=== PATIENT | female | born 1965 ===

== ENCOUNTER → 2020-12-22 | Outpatient (CLI) | payer OTHER ==
--- NOTE | 2020-12-23 13:13 | Diagnostic Imaging Report ---
Indication: 2-D and 3-D digital screening with CAD. Compared 01/29/2019 Findings: There is a heterogeneously dense parenchymal pattern which can limit mammographic sensitivity. No mass, architectural distortion, suspicious calcifications, spiculated lesions or interval changes are found. IMPRESSION: Stable negative mammograms. BI-RADS Category 1 ACR BI-RADS Category 1: Negative. Result letter will be mailed to the patient. Note: At least 10% of breast cancer is not imaged by mammography. Dictated by: Dictated on workstation # [id number]
== END ==
LOC: RAD 10:15
PROVIDERS: ATTEND Nurse Practitioner Family
DX: Z12.31 Encounter for screening mammogram for malignant neoplasm of breast (principal)
CPT/HCPCS: 77063; 77067